=== PATIENT | male | born 2000 | race African-American/Black ===

== ENCOUNTER 2022-02-19 17:27 | Emergency (ER) | payer MEDICAID ==
[~2022-02-19] VITALS: Ht 193 cm; Wt 73.6 kg
[2022-02-19 17:35] VITALS: BP 105/50
[2022-02-19] MEDS ORDERED: DOXY-354 PO (18:58)
== END 2022-02-19 19:16 | disposition home or self-care (01) ==
LOC: EMS 17:30
DX: N45.4 Abscess of epididymis or testis (principal)
CPT/HCPCS: 99283; Z7502